=== PATIENT | female | born 1940 | race Caucasian/White ===

== ENCOUNTER → 2017-07-16 | Emergency (ER) | payer OTHER ==
[~2017-07-16] VITALS: Ht 167.6 cm; Wt 117.9 kg
[~2017-07-16] MED LIST: ASA81 MG; BUDEO.25 IH; DIOVAN HCT 320/1 TAB; DOLOGESIC CAPLE1 TAB PO; LEVAQUIN500 MG PO; LEVAQUIN750 MG PO; PROVENTIL3 ML/2.5 M IH; SINGULAIR 4MG4 MG; SYNTHROID50 MCG; TESSALON200 MG PO; TUSSIONEX PENNKI5 ML PO; ZOLOFT25 MG
== END | disposition home or self-care (01) ==
LOC: ER 17:49
DX: R47.1 Dysarthria and anarthria (principal)

== ENCOUNTER 2017-11-24 14:21 | Emergency (ER) | payer OTHER ==
[~2017-11-24] VITALS: Ht 175.3 cm; Wt 127.0 kg
== END 2017-11-24 19:15 | disposition home or self-care (01) ==
LOC: ER 14:21
DX: M25.562 Pain in left knee (principal)